=== PATIENT | female | born 1990 | race Two or more races ===

== ENCOUNTER 2021-09-25 05:30 | Outpatient (CLI) | payer OTHER ==
[2021-09-25] MEDS ORDERED: PRENATAL CAPLE1 EAC1 PO (05:43)
== END 2021-09-25 14:46 | disposition home or self-care (01) ==
LOC: OBS/DEL 05:30
PROVIDERS: ATTEND Obstetrics & Gynecology
DX: O26.892 Other specified pregnancy related conditions, second trimester (principal); R10.2 Pelvic and perineal pain; Z3A.27 27 weeks gestation of pregnancy